=== PATIENT | female | born 1945 | race Caucasian/White ===

== ENCOUNTER 2016-06-23 15:25 | Emergency (ER) | payer OTHER ==
[~2016-06-23] VITALS: Ht 167.6 cm; Wt 65.3 kg
[2016-06-23 15:41] VITALS: BP 149/102; PULSE 113; RESP 16; TEMP 98.3; O2SAT 96
[2016-06-23 17:29] VITALS: BP 169/96; PULSE 102; RESP 16; O2SAT 97
[2016-06-23] MEDS ORDERED: AMBI5TAB PO (17:30)
[2016-06-23] MEDS ORDERED: ANTIDEPRESSANT (17:30)
[2016-06-23] MEDS ORDERED: HTN (17:30)
--- NOTE | 2016-06-23 17:40 | PD ---
HPI Chief Complaint: Abdominal Pain Time Seen by Provider: 17:20 Travel History International Travel<30 days: No Contact w/Intl Traveler<30days: No Traveled to known affect area: No History of Present Illness HPI This patient is reasonably been diagnosed with type 2 diabetes. She has had a couple of blood draws showing fasting blood sugars in the 300-400 range. She says she has been feeling a little bit lightheaded. She says she called her insurance, and to let them know what's going on and they had a nurse get on the phone and told her to go to the emergency room. Symptoms severity is mild to moderate. No alleviating factors. Denies fever or chest pain or syncope. Accu -Chek here 302. She is not on any diabetic medications. Duration 1-2 weeks PFSH Past Medical History Depression: Yes Cardiovascular Problems: Yes (htn on meds) Diabetes: Yes (POSSIBLE NEW ONSET) Patient Takes Glucophage: No Hypertension: Yes ?: Not Past Surgical History Other Surgery: Yes ("TUMOR REMOVED SIDE OF FACE") Social History Alcohol Use: Yes (WINE OCC) Tobacco Use: No Allergies-Medications (Allergen,Severity, Reaction): Coded Allergies: No Known Allergies (Unverified , 06/23/16) Reported Meds & Prescriptions Reported Meds & Active Scripts Active Metformin (Metformin HCl) 1,000 Mg Tab 1,000 Mg PO BIDPC With meals Reported Ambien (Zolpidem Tartrate) 5 Mg Tab 5 Mg PO HS PRN [Htn ] [Antidepressant] Review of Systems General / Constitutional: No: Fever Eyes: No: Visual changes HENT: Positive: Lightheadedness, No: Headaches Cardiovascular: No: Chest Pain or Discomfort Respiratory: No: Shortness of Breath Gastrointestinal: No: Abdominal Pain Genitourinary: No: Dysuria Musculoskeletal: No: Pain Skin: No Rash Neurologic: No: Weakness Psychiatric: No: Depression Endocrine: No: Polydipsia Hematologic/Lymphatic: No: Easy Bruising Physical Exam Narrative GENERAL: Well-nourished, well-developed patient in no apparent distress. SKIN: Warm and dry. HEAD: Atraumatic. Normocephalic. EYES: Pupils equal and round. No scleral icterus. No injection or drainage. ENT: No nasal bleeding or discharge. Mucous membranes pink and moist. NECK: Trachea midline. No JVD. CARDIOVASCULAR: Regular rate and rhythm. No murmur appreciated. RESPIRATORY: No accessory muscle use. Clear to auscultation. Breath sounds equal bilaterally. GASTROINTESTINAL: Abdomen soft, non-tender, nondistended. Hepatic and splenic margins not palpable. MUSCULOSKELETAL: No obvious deformities. No clubbing. No cyanosis. No edema. NEUROLOGICAL: Awake and alert. No obvious cranial nerve deficits. Motor grossly within normal limits. Normal speech. PSYCHIATRIC: Appropriate mood and affect; insight and judgment normal. Data Data Last Documented VS Vital Signs Date Time Temp Pulse Resp B/P Pulse Ox O2 Delivery O2 Flow Rate FiO2 06/23/16 17:58 98 Room Air 06/23/16 17:29 102 16 169/96 06/23/16 15:41 98.3 Orders Basic Metabolic Panel (Bmp) (06/23/16 17:32) Complete Blood Count With Diff (06/23/16 17:32) Ecg Monitoring (06/23/16 17:32) Iv Access Insert/Monitor (06/23/16 17:32) Oximetry (06/23/16 17:32) Sodium Chloride 0.9% Flush (Ns Flush) (06/23/16 17:45) Insulin Human Regular Inj (Novolin R Inj (06/23/16 17:45) Sodium Chlor 0.9% 1000 Ml Inj (Ns 1000 M (06/23/16 17:45) Electrocardiogram (06/23/16 ) Labs Laboratory Tests Test 06/23/16 17:35 White Blood Count 16.4 TH/MM3 Red Blood Count 5.90 MIL/MM3 Hemoglobin 15.8 GM/DL Hematocrit 47.0 % Mean Corpuscular Volume 79.6 FL Mean Corpuscular Hemoglobin 26.8 PG Mean Corpuscular Hemoglobin 33.7 % Concent Red Cell Distribution Width 12.5 % Platelet Count 240 TH/MM3 Mean Platelet Volume 7.5 FL Neutrophils (%) (Auto) 47.6 % Lymphocytes (%) (Auto) 44.1 % Monocytes (%) (Auto) 4.5 % Eosinophils (%) (Auto) 1.6 % Basophils (%) (Auto) 2.2 % Neutrophils # (Auto) 7.8 TH/MM3 Lymphocytes # (Auto) 7.2 TH/MM3 Monocytes # (Auto) 0.7 TH/MM3 Eosinophils # (Auto) 0.3 TH/MM3 Basophils # (Auto) 0.4 TH/MM3 CBC Comment AUTO DIFF Differential Total Cells 100 Counted Neutrophils % (Manual) 61 % Lymphocytes % 34 % Monocytes % 2 % Eosinophils % 3 % Neutrophils # (Manual) 10.0 TH/MM3 Differential Comment FINAL DIFF MANUAL Platelet Estimate NORMAL Platelet Morphology Comment NORMAL Red Cell Morphology Comment NORMAL Sodium Level 133 MEQ/L Potassium Level 5.9 MEQ/L Chloride Level 100 MEQ/L Carbon Dioxide Level 22.6 MEQ/L Anion Gap 10 MEQ/L Blood Urea Nitrogen 19 MG/DL Creatinine 0.83 MG/DL Estimat Glomerular Filtration 68 ML/MIN Rate Random Glucose 280 MG/DL Calcium Level 8.9 MG/DL MDM Medical Decision Making Medical Screen Exam Complete: Yes Emergency Medical Condition: Yes Medical Record Reviewed: Yes Differential Diagnosis New-onset diabetes, DKA, dehydration Narrative Course I have reviewed the patient's electronic medical record. I also reviewed her home Journal where she checks her blood sugars and blood pressures. Her blood pressures have largely been normal with a rare mild elevation. Patient's exam is normal. IV placed CBC is normal Metabolic profile shows normal bicarbonate, not consistent with DKA. Her potassium was elevated but is also hemolyzed. I reviewed her EKG which shows no peaked T waves or other arrhythmia. I gave her 6 units subcutaneous regular insulin I gave her 1 L normal saline IV Patient is not in DKA. She feels well on recheck. I'm going to start her on metformin twice daily as she has normal creatinine Will check and record her blood sugar frequently Follow-up with primary care for diabetic education and close follow-up Diagnosis Primary Impression: New onset type 2 diabetes mellitus Additional Impression: Lightheadedness Additional Instructions: The patient was advised to follow up with their physician and return if they worsen. Check and record blood pressure daily Check and record blood sugar 4 times daily Med/Other Pt SpecificInfo: Prescription(s) given Scripts Metformin 1,000 Mg Tab1,000 Mg PO BIDPC #60 TAB Ref 0 With meals Prov:Avery Kathleen MD 06/23/16 Disposition: 01 DISCHARGE HOME Condition: Stable Avery Kathleen MD Jun 23, 2016 17:39
[2016-06-23] MEDS ORDERED: SODIUM CHLORIDE 0.9% FLUSH 5 ML FLUSH IVF PRN (17:45)
[2016-06-23] MEDS ORDERED: INSULIN HUMAN REGULAR 1,000 UNITS/10 ML VIAL SQ ONE (17:45)
[2016-06-23] MEDS ORDERED: SODIUM CHLOR 0.9% 1000 ML INJ 1,000 ML IV ONE (17:45)
[2016-06-23 17:48] LABS: AUTOMATED NEUTROPHIL # 7.8 TH/MM3 (1.8-7.7); BASOPHIL # 0.4 TH/MM3 (0-0.2); BASOPHIL % 2.2 % (0.0-2.0); EOSINOPHIL # 0.3 TH/MM3 (0-0.4); EOSINOPHIL % 1.6 % (0.0-4.0); LYMPH % 44.1 % (9.0-44.0); LYMPHOCYTE # 7.2 TH/MM3 (1.0-4.8); MEAN CELL VOLUME 79.6 FL (80.0-100.0); MEAN CORPUSCULAR HEMOGLOBIN 26.8 PG (27.0-34.0); MEAN CORPUSCULAR HGB CONC 33.7 % (32.0-36.0); MONO % 4.5 % (0.0-8.0); NEUT % 47.6 % (16.0-70.0); PLATELET COUNT 240 TH/MM3 (150-450); RED CELL DISTRIBUTION WIDTH 12.5 % (11.6-17.2); WHITE BLOOD COUNT 16.4 TH/MM3 (4.0-11.0)
[2016-06-23 17:49] LABS: HEMO FLAGS AUTO DIFF
[2016-06-23 17:57] LABS: POTASSIUM 5.9 MEQ/L (3.5-5.1)
[2016-06-23 17:58] VITALS: O2SAT 98
[2016-06-23 18:00] LABS: BICARBONATE 22.6 MEQ/L (21.0-32.0)
[2016-06-23 18:10] LABS: EOSINOPHILS 3 % (0-4); PLATELET ESTIMATE SMEAR NORMAL (NORMAL); PLATELET MORPHOLOGY NORMAL (NORMAL); POLYS (SEG NEUTROPHILS) 61 % (16-70); SCAN/DIFF FINAL DIFF MANUAL; WBC DIFF SAMPLE 100
[2016-06-23] MEDS ORDERED: METF1000 PO (18:47)
[2016-06-23 19:10] VITALS: BP 173/79
--- NOTE | 2016-06-24 09:15 | EKG ---
Date Performed: 06/23/2016 Time Performed: 18:23:18 PTAGE: 71 years EKG: Sinus rhythm Normal ECG NO PREVIOUS TRACING DOCTOR: Adam Fernando Interpretating Date/Time 06/24/2016 09:14:27
== END 2016-06-23 19:18 | disposition home or self-care (01) ==
LOC: PHED 15:25
DX: E11.9 Type 2 diabetes mellitus without complications (principal); R42 Dizziness and giddiness; I10 Essential (primary) hypertension; Z86.79 Personal history of other diseases of the circulatory system
CPT/HCPCS: 80048; 85007; 85027; 93005; 96372; 99285; J1815; J7030